=== PATIENT | male | born 1945 | race Caucasian/White ===

== ENCOUNTER 2023-06-29 11:14 | Emergency (ER) | payer OTHER, SELFPAY ==
[2023-06-29 11:14] VITALS: BMI 24.3
[2023-06-29 11:17] VITALS: BP 168/98
--- NOTE | 2023-06-29 14:10 | ED.GENMED ---
History of Present Illness
General
Chief Complaint: Numbness
Source: patient and spouse
Exam Limitations: none
Time Seen by Provider: 06/29/23 11:28
Nursing documentation reviewed up to this point in time: agreed with
Travel History
Have you had any contact with someone who has COVID-19?: No
Do you have any symptoms of coronavirus? Fever > 100 degrees, chills, cough, shortness of breath, sore throat, loss of taste or smell, muscle aches, or headache?: No
History of Present Illness
History of Present Illness:
78-year-old male with history of GERD and hypertension presents to the emergency room for evaluation of numbness in the right temporal region. Patient reports that he had a recent dental extraction between and . Tooth extracted
was right upper molar. He says that he had been doing well since the extraction but last week on he had a slight right-sided earache and when he started palpating around his ear he noted that he felt slightly numb and a very small area
anterior to his ear. He says earache improved, saw his primary doctor in the office for assessment of his symptoms today. He says that his primary doctor told him that it could be related to his recent dental extraction but advised him that he
should go to the emergency room to be assessed further. Aside from this very localized area of numbness he denies any other complaints here today. He says he has had occasional headaches for the past few months but nothing severe and no headache
at present. He denies any other symptoms such as numbness or weakness in the rest of his body, change in his vision or speech. No jaw claudication. No rash. No trauma. No similar symptoms in the past.
Past History
Past History
ED Past Medical History: None
ED Past Surgical History: None
Social History
Tobacco: Non-smoker
Personal:
Living: with family
Employment: Employed
Review of Systems
Review of Systems
All Other Systems: ROS reviewed and negative except as documented in HPI and ROS
Constitutional: Denies fever or chills
Respiratory: Denies trouble breathing
Cardiac: Denies chest pain
ABD/GI: Denies abdominal pain, nausea or vomiting
: Denies flank pain
Musculoskeletal: Denies neck pain or back pain
Skin: Denies rash
Neurological: Reports numbness (Localized); Denies dizzy, headache or weakness
Phy Exam
Physical Exam
Physical Exam:
General: Awake, alert, oriented x3; no acute distress
Head: Normocephalic, atraumatic, no tenderness along the temporal artery
Eyes: Conjunctiva normal, EOMI, pupils equal round reactive to light bilateral
Ears: TMs clear bilaterally
Throat: Airway intact, handling secretions, no intraoral swelling, good dentition; tooth #2 absent by extraction
Neck: Trachea midline, supple without meningismus
Lungs: Clear to auscultation bilaterally, no wheezing, rales, rhonchi
Heart: Regular rate and rhythm, no murmurs, gallops, or rubs
Abd: Soft, non distended, nontender
Neuro: Cranial nerves intact 2 through 12 (only very localized area of diminished sensation as described), speech is fluid with no dysarthria or aphasia, no limb ataxia, motor and sensory function is intact proximally and distally in the upper and
lower extremities; with particular attention to left preauricular/temporal region: He has an area about the size of a dime anterior and superior to the ear which has diminished sensation on pinprick sensory testing; no rash or skin changes in this
area
Skin: no rash
Extremities: No edema in extremities, equal pulses in all extremities
Scores
Heart Failure Risk
Heart Failure Risk Score: Not Applicable
Heart Score for Chest Pain Patients
STEMI patient?: Not applicable
Withdrawal Assessment of Alcohol
Withdrawal Assessment Completed?: Not applicable
Course
Orders/Labs/Results
Orders:
Orders
06/29/23 12:30
CT Head W/o Iv Contrast Urgent
Comment:
Reason For Exam: headache, numbness right temporal region
Vital Signs
Initial and Last Documented VS:
Initial Vital Signs
Temp Pulse Resp BP Pulse Ox
36.7 C 60 16 168/98 98
06/29/23 11:17 06/29/23 11:17 06/29/23 11:17 06/29/23 11:17 06/29/23 11:17
Last Documented Vital Signs
Temp Pulse Resp BP Pulse Ox
36.7 C 60 16 168/98 98
06/29/23 11:17 06/29/23 11:17 06/29/23 11:17 06/29/23 11:17 06/29/23 11:17
MDM/Problems Addressed
Differential Diagnosis Includes:
Peripheral neuropathy, iatrogenic nerve injury secondary to recent extraction, developing abscess, brain mass
MDM/Problems Addressed:
78-year-old male presents for evaluation of very localized area of numbness on his head that started 2 weeks ago�saw his primary who recommended he be evaluated in the emergency room. He did have a recent dental extraction 2 months ago. He is
hypertensive but has otherwise normal vitals. His physical exam is as above. History and exam are not consistent with an acute CVA�his area of sensory defect is extraordinarily localized to about the size of a dime in the preauricular region. He
has nothing to suggest shingles. No symptoms that suggest temporal arteritis. He did have a recent extraction we sent him for CT head showed no mass and no signs of an abscess. Suspect likely peripheral neuropathy. I think he can follow-up with
his primary doctor as an outpatient. He feels comfortable with this. Spoke about return precautions all questions answered.
Acute Exacerbation and/or Progression of Chronic Illness:
Acutely hypertensive.
Acute Exacerbation and/or Progression of Chronic Illness: HTN
*Radiology
Radiology exam reviewed: radiology read reviewed
*Pulse Oximetry
Patient hypoxic: no
*Critical Care Note
Total Time (30-74mins, 75-104mins- exclusive of procedures): Not Applicable
Data Reviewed
Source: patient and spouse
ED Attending Note
-
Portions of this chart may have been created with voice recognition software.� Occasional wrong word or��sound alike� substitutions may have occurred due to the inherent limitations of voice recognition software.
Discharge Plan
Departure
Patient Disposition: Home (Routine Discharge)
Date of Disposition: 06/29/23
Time of Disposition: 13:20
Patient with high blood pressure during this ER visit?: Yes
Discharge Problem:
Numbness
Instructions: Peripheral Neuropathy (DC)
Prescriptions:
No Action
aspirin 325 MG tablet
325 mg PO PRN PRN (Reason: pain)
Patient Comments:
pt states he takes one a week if that
Referrals:
Meenu Dennis CRNP [Family Provider] - Call in 1-3 days for appt
Activity Restrictions/Additional Instructions:
Thank you for visiting the Emergency Department at [facility].
1. Please schedule a follow up appointment as directed. Call first thing tomorrow morning to make an appointment.
2. If indicated, please take your medications as instructed and indicated on discharge paperwork.
3. If any of your symptoms do not improve, or persist, or become more severe within 6-12 hours, please return to the emergency department for further care.
4. Please return to the emergency department if you develop a headache, neck pain/stiffness, fever greater than 100.4F, chest pain, shortness of breath, persistent nausea, vomiting, slurred speech, difficulty walking, numbness/tingling, weakness,
signs of infection or any other symptoms that are worrisome to you.
Please call [phone] if you have any questions.
Interventions
Interventions:
*Risk Screen - Suicide Last Done: 06/29/23 12:11
*General Assessment Last Done: 06/29/23 12:11
*Neglect/Abuse Screening Last Done: 06/29/23 12:11
*ED COVID-19 Vaccine History Last Done: 06/29/23 11:17
*Nursing Disposition Last Done: 06/29/23 13:30
ED- Neurological Assessment Last Done: 06/29/23 12:11
Discharge Date and Time
Discharge Date/Time: 06/29/23 13:32
== END 2023-06-29 13:32 | disposition home or self-care (01) ==
LOC: EMR 11:14
PROVIDERS: EMERGENCY PHYSICIAN Emergency Medicine; FAMILY PHYSICIAN Nurse Practitioner Family
DX: R20.0 Anesthesia of skin (principal); G62.9 Polyneuropathy, unspecified; I10 Essential (primary) hypertension; K21.9 Gastro-esophageal reflux disease without esophagitis
CPT/HCPCS: 99284; 70450

== ENCOUNTER 2024-06-04 10:48 | Emergency (ER) | payer OTHER, SELFPAY ==
[2024-06-04 10:54] VITALS: BP 143/85
[2024-06-04 11:16] LABS: Urine Albumin Negative (Neg - Trace); Urine Bilirubin Negative (Negative); Urine Character Clear (Clear); Urine Color Yellow; Urine Glucose Negative (Negative); Urine Ketone Negative (Negative); Urine Leukocyte Negative (Negative); Urine Nitrite Negative (Negative); Urine Occult Blood Negative (Negative); Urine Urobilinogen Negative (Neg - 1+)
[2024-06-04 11:19] LABS: % Basophils 0.8 % (0-2); % Eosinophils 3.5 % (0-6); % Immature Granulocytes 0.3 % (0-0.5); % Lymphocytes 24.3 % (20.5-51.1); % Monocytes 8.5 % (1.7-9.3); % Neutrophils 62.6 % (42.2-75.2); Absolute Basophils 0.1 10^3/uL (0-0.2); Absolute Eosinophils 0.3 10^3/uL (0-0.7); Absolute Lymphocytes 1.8 10^3/uL (1.2-3.4); Absolute Monocytes 0.6 10^3/uL (0.1-0.6); Absolute Neutrophils 4.7 10^3/uL (1.4-6.5); Hematocrit 47.4 % (39.0-52.0); Hemoglobin 16.4 g/dL (13.0-18.0); Mean Corp Hgb Conc. 34.6 g/dL (33.0-37.0); Mean Corpuscular Hgb 30.2 pg (27.0-31.0); Mean Corpuscular Volume 87.3 fL (80.0-94.0); Mean Platelet Volume 10.3 fL (7.4-10.4); Nucleated Red Blood Cells % 0 % (-); Platelet Count 216 10^3/uL (130-400); Red Blood Cell Count 5.43 10^6/uL (4.70-6.10); Red Cell Dist. Width 13.2 % (11.5-14.5); White Blood Cell Count 7.5 10^3/uL (4.8-10.8)
[2024-06-04 11:31] LABS: ALT (SGPT) 19 U/L (0-50); AST (SGOT) 27 U/L (17-59); Albumin 4.9 g/dl (3.5-5.0); Alkaline Phosphatase 73 U/L (38-126); Blood Urea Nitrogen 20 mg/dl (9-20); Carbon Dioxide 29 mmol/L (22-30); Chloride 100 mmol/L (98-107); Glucose 104 mg/dl (70-99); Potassium 4.3 mmol/L (3.5-5.1); Sodium 140 mmol/L (135-145); Total Protein 7.5 g/dl (6.3-8.2); eGFR 55.19
--- NOTE | 2024-06-04 13:42 | ED.GENMED ---
History of Present Illness
<Anahy Fithc PA-C - Last Filed: 06/04/24 21:53>
General
Chief Complaint: Abdominal Pain
Source: patient
Exam Limitations: none
Time Seen by Provider: 06/04/24 13:01
Nursing documentation reviewed up to this point in time: agreed with
History of Present Illness
History of Present Illness:
This is a 79-year-old male with past medical history of GERD who presents emergency department today with concerns of a bulge from his groin/lower abdomen. He notes some mild discomfort at the site of the bulge but not true pain. He states that he
first noticed this after lifting a heavy tire a month ago. He feels like the bulge has gotten bigger. He denies any fevers or chills, any nausea or vomiting, any diarrhea or constipation, any rectal bleeding. The bulge disappears when he lies
down. He denies chest pain, shortness of breath. He has no prior history of hernias or intraabdominal surgery other than kidney stone removal.
Past History
<Anahy Fitch PA-C - Last Filed: 06/04/24 21:53>
Past History
ED Past Medical History: None
ED Past Surgical History: None
Social History
Tobacco: Non-smoker
Personal:
Living: with family
Employment: Employed
Review of Systems
<Anahy Fitch PA-C - Last Filed: 06/04/24 21:53>
Review of Systems
All Other Systems: ROS reviewed and negative except as documented in HPI and ROS
Phy Exam
<Anahy Fitch PA-C - Last Filed: 06/04/24 21:53>
Physical Exam
Physical Exam:
General: Patient is well appearing and in no acute distress; non-toxic
Skin: Warm and dry, no rashes or lesions
Head: Normocephalic, atraumatic
Eyes: Sclera non-icteric. EOMs intact. PERRLA.
Cardiac: Regular rate and rhythm, no murmurs
Peripheral Vascular: No lower extremity swelling or edema
Pulm: Normal respiratory effort
Abdomen: No abdominal tenderness to palpation, right inguinal hernia seen with no signs of incarceration
Neuro: CN II-XII intact, no focal neurologic deficits.
Psychiatric: Appropriate mood and affect.
Course
<Anahy Fitch PA-C - Last Filed: 06/04/24 21:53>
Orders/Labs/Results
Orders:
Orders
06/04/24 11:03
Complete Blood Count/With Diff Urgent
Comprehensive Metabolic Panel Urgent
Urinalysis Reflex To Culture Urgent
Date Specimen was Collected: 06/04/24
Time Specimen was Collected: 10:57
Abnormal Lab Results
06/04/24
11:03
Glucose 104 H mg/dl
(70-99)
Total Bilirubin 2.0 H mg/dl
(0.2-1.3)
06/04/24 11:03
06/04/24 11:03
Vital Signs
Initial and Last Documented VS:
Initial Vital Signs
Temp Pulse Resp BP Pulse Ox
98.0 F 84 16 143/85 98
06/04/24 10:54 06/04/24 10:54 06/04/24 10:54 06/04/24 10:54 06/04/24 10:54
Last Documented Vital Signs
Temp Pulse Resp BP Pulse Ox
98.0 F 84 16 143/85 98
06/04/24 10:54 06/04/24 10:54 06/04/24 10:54 06/04/24 10:54 06/04/24 10:54
<Santiago Martines DO - Last Filed: 06/04/24 14:03>
Orders/Labs/Results
Orders:
Orders
06/04/24 11:03
Complete Blood Count/With Diff Urgent
Comprehensive Metabolic Panel Urgent
Urinalysis Reflex To Culture Urgent
Date Specimen was Collected: 06/04/24
Time Specimen was Collected: 10:57
Abnormal Lab Results
06/04/24
11:03
Glucose 104 H mg/dl
(70-99)
Total Bilirubin 2.0 H mg/dl
(0.2-1.3)
06/04/24 11:03
06/04/24 11:03
Vital Signs
Initial and Last Documented VS:
Initial Vital Signs
Temp Pulse Resp BP Pulse Ox
98.0 F 84 16 143/85 98
06/04/24 10:54 06/04/24 10:54 06/04/24 10:54 06/04/24 10:54 06/04/24 10:54
Last Documented Vital Signs
Temp Pulse Resp BP Pulse Ox
98.0 F 84 16 143/85 98
06/04/24 10:54 06/04/24 10:54 06/04/24 10:54 06/04/24 10:54 06/04/24 10:54
<Anahy Fitch PA-C - Last Filed: 06/04/24 21:53>
MDM/Problems Addressed
Differential Diagnosis Includes:
inguinal hernia
MDM/Problems Addressed:
79-year-old male with past medical history of GERD presents emergency department today with concerns of right lower groin bulge. History and physical exam consistent with inguinal hernia. Patient provided with general surgery follow-up. No
indication for imaging at this time. Patient stable for discharge
Chronic conditions affecting care:
GERD
<Anahy Fitch PA-C - Last Filed: 06/04/24 21:53>
*Pulse Oximetry
Patient hypoxic: no
*Critical Care Note
Total Time (30-74mins, 75-104mins- exclusive of procedures): Not Applicable
Data Reviewed
Review of Other/Old Records Reveals: Records (Reviewed discharge summary from 04/09/2014 patient seen for left-sided abdominal pain and was found to have ureteral stone)
Source: patient and records
Prescriptions/Medications Considered But Not Given:
n/a
<Anahy Fitch PA-C - Last Filed: 06/04/24 21:53>
Patient Management
Escalation/DeEscalation of care consider admission/obs:
Patient stable for discharge
ED Attending Note
<Anahy Fitch PA-C - Last Filed: 06/04/24 21:53>
-
Portions of this chart may have been created with voice recognition software.� Occasional wrong word or��sound alike� substitutions may have occurred due to the inherent limitations of voice recognition software.
<Santiago Martines DO - Last Filed: 06/04/24 14:03>
ED Attending Note
Patient seen and examined by attending physician: Yes
I performed the substantive portion of visit, reviewed & personally made and approve the management plan that is documented in note by myself or ANANYA.: Yes
ED Attending Note:
I agree with Anahy's note.
Patient presents for evaluation of a bulge in his right groin. No nausea, vomiting or obstructive symptoms
Exam reveals a right inguinal hernia. It is easily reducible. Remainder of his abdominal exam is benign.
Recommend outpatient follow-up with surgery
Discharge Plan
Departure
Patient Disposition: Home (Routine Discharge)
Date of Disposition: 06/04/24
Time of Disposition: 13:55
Patient with high blood pressure during this ER visit?: Yes
Condition: Good
Discharge Problem:
Inguinal hernia
Instructions: Groin hernias, BLOOD PRESSURE
Prescriptions:
No Action
aspirin 325 MG tablet
325 mg PO PRN PRN (Reason: pain)
Patient Comments:
pt states he takes one a week if that
Referrals:
Beto Marley PA [Family Provider] -
Devante Eduardo MD [Active] - Call in 1-3 days for appt
Activity Restrictions/Additional Instructions:
Please call the attached number to schedule the appointment with Dr. Eduardo's office.
PLEASE RETURN TO EMERGENCY DEPARTMENT SHOULD YOU DEVELOP INCREASING ABDOMINAL PAIN, TENDERNESS, IF YOU FEEL THAT THE HERNIA GETS STUCK, FEVERS OR CHILLS, INTRACTABLE NAUSEA OR VOMITING, CHEST PAIN, SHORTNESS OF BREATH, OR ANY OTHER SIGNS OR SYMPTOMS
CONCERNING TO YOU.
Interventions
Interventions:
*Risk Screen - Suicide Last Done: 06/04/24 10:56
*Neglect/Abuse Screening Last Done: 06/04/24 10:56
*Nursing Disposition Last Done: 06/04/24 14:09
Discharge Date and Time
Discharge Date/Time: 06/04/24 14:10
Print Language: VIETNAMESE
== END 2024-06-04 14:10 | disposition home or self-care (01) ==
LOC: EMR 10:48
PROVIDERS: EMERGENCY PHYSICIAN Emergency Medicine; FAMILY PHYSICIAN Physician Assistant
DX: K40.90 Unilateral inguinal hernia, without obstruction or gangrene, not specified as recurrent (principal); K21.9 Gastro-esophageal reflux disease without esophagitis
CPT/HCPCS: 99283; 80053; 81003; 85025

== ENCOUNTER 2024-07-02 06:21 | Day surgery (SDC) | payer OTHER, SELFPAY ==
[2024-06-18 13:59] VITALS: BMI 26.4
[2024-07-02] VITALS (11 sets, daily range): BP systolic 118–142; BP diastolic 62–82; BMI 26.4
[2024-07-02] MEDS: NORMOSOL-R/PLASMALYTE-A 1000 IV (12:06)
[2024-07-02] MEDS: TYLENOL 1000 MG PO (12:07)
--- NOTE | 2024-07-02 12:49 | W.SUR.PREOP ---
Pre-Operative Surgical Note
-
I have examined this patient prior to the performance of the scheduled procedure.
The patient's condition is unchanged from the time of the current History and
Physical and the patient is able to undergo the scheduled procedure.
--- NOTE | 2024-07-02 14:49 | W.IMMPOSTOP ---
Surgical Immed Post Op Note
-
Primary Surgeon: Jake Morris MD
Assisting Surgeon: None
Pre-op Diagnosis: Right inguinal hernia
Post-op Diagnosis: Same
Procedure Performed: Robotic right inguinal hernia repair with mesh
Anesthesia Type: General
Specimen / Cultures: None
Estimated Blood Loss: 1 cc
Complications: None
Operative Findings: Large indirect inguinal hernia, space obliterated with a 2-0 V-Loc suture. No direct or femoral components. No cord lipoma identified. At the MPO was reinforced with a large right Bard 3D max uncoated polypropylene mesh. Menard
placed at the beginning of the case due to incontinence, removed at the end.
--- NOTE | 2024-07-02 14:51 | OR.RPT ---
Operative Report
Operative Report
Patient Name: James Dodson
: 1945
Date of Operation: 07/02/2024
Preoperative Diagnosis: Reducible Inguinal hernia, right
Postoperative Diagnosis: Same
Procedure(s):
Robotic Inguinal Hernia Repair with mesh, right (ZENA approach)
Surgeon(s):
Dr. Morris
Integration Aide(s):
DEEPA Romero
Anesthesia: General
Estimated Blood Loss: 3 cc
Urine Output: None
Drains/Lines/Implants: Large 3D Max Bard mid weight uncoated polypropylene mesh
Specimens: None
Indication for surgery: The patient has a history of groin pain and noted on exam to have a right inguinal Hernia. Following review of therapeutic options they have elected to undergo a minimally invasive repair.
Operative Findings: Large indirect inguinal hernia, space obliterated with a 2-0 V-Loc suture. No direct or femoral components. No cord lipoma identified. At the MPO was reinforced with a large right Bard 3D max uncoated polypropylene mesh. Menard
placed at the beginning of the case due to incontinence, removed at the end.
Details of the operation:
The patient was brought to the Operating Room and placed in the supine position with the arms tucked. IV antibiotics were infused and Venodyne stockings placed. Following uneventful induction of general endotracheal anesthesia, an orogastric tube
was placed. The abdomen was prepped and draped in the usual sterile fashion. The abdomen was entered using a Veress technique which required 1 pass, pneumoperitoneum to 15 mmHg was obtained without difficulty. An 8mm trochar was passed through the
abdominal wall roughly 20 cm cephalad to the inguinal canal. We then confirmed that no inadvertent injury was made while passing the trocar or Veress needle. We then placed two additional 8 mm ports in the left upper and right upper quadrants. We
then docked the robot with a Prograsper in the left hand port and monopolar scissors in the right. A right direct inguinal hernia was noted. No defect was noted on the left. We then began on the right by creating a flap at the level of the ASIS
laterally working our way medially to the medial umbilical fold. Staying onto the peritoneum we were able to circumferentially dissect around the hernia sac and and peel it off of the underlying spermatic cord and testicular vessels, taking care to
preserve them. Medially we identified the midline pubis as well as Dawit's ligament and ensured to dissect 2 cm below the pubic rim over the bladder. After exposure of the entire myopectineal orifice we identified and reduced: A medium size
direct inguinal hernia which was imbricated using a 2-0 V-Loc 180 suture and securing the attenuated transversalis fascia to Dawit's. No indirect or femoral component was noted. No cord lipoma was identified. After achieving the critical view of
the MPO, we then fixated a large 3D max mesh with a 2-0 Vicryl stitch at coopers medially and superior laterally. The flap was then closed with a running 2-0 barbed monocryl suture ensuring that the tail was cut flush with the medial fat pad so
that no barbs were exposed. During the closure of the flap an Angiocath was inserted and 20 cc of quarter percent Marcaine was instilled. The area in the flap cavity was then evacuated of air confirming that the mesh was flush and there were no
folds. . All needles and instruments were then removed and the robot was undocked. The abdomen was then desufflated, and pneumoperitoneum evacuated. All skin sites were then closed with 4-0 Monocryl followed by Dermabond. Counts were correct and
overall, the patient tolerated the procedure well and was taken to the Recovery Room postoperatively in stable condition.
I was the attending physician and performed the procedure with assistance of the PA above. The assistance of DEEPA Romero was required due to the complexity of the procedure. During the procedure Loree assisted with port placement, instrument
and needle exchanges, and closure of the wound. Shiva was present for all portions of the case, excluding skin closure.
Jake Morris MD
== END 2024-07-02 16:50 | disposition home or self-care (01) ==
LOC: SDS 06:21
PROVIDERS: ATTENDING PHYSICIAN Surgery; FAMILY PHYSICIAN Physician Assistant
DX: K40.90 Unilateral inguinal hernia, without obstruction or gangrene, not specified as recurrent (principal)
CPT/HCPCS: 49650; 36415; 93005; C1781